=== PATIENT | female | born 1960 | race African-American/Black ===

== ENCOUNTER 2018-03-07 16:50 | Inpatient (IN) | payer OTHER ==
[2018-03-07 19:50] VITALS: BMI 16.6
--- NOTE | 2018-03-08 00:37 | HP ---
CIWA Score - CIWA Score Nausea/Vomitin (vomiting x 2) Muscle Tremors: 3 Anxiety: 3 Agitation: 0-Normal Activity Paroxysmal Sweats: No Perspiration Orientation: 2-Disoriented Date<2 days Tacttile Disturbances: 0-None Auditory Disturbances: 0-None Visual Disturbances: 0-None Headache: 4-Moderately Severe CIWA-Ar Total Score: 15 Admission ROS S - HPI Chief Complaint: Alcohol withdrawal symptoms Allergies/Adverse Reactions: Allergies Allergy/AdvReac Type Severity Reaction Status Date / Time No Known Drug Allergies Allergy Verified 03/07/18 22:27 History of Present Illness: 58 years old female with 25 years history of alcohol dependence is seeking admission to detox. Patient has been in previous detox at [facility] and reports 6 years of sobriety. Patient has medical history of diabetes, Hypertension and Neuropathy. She denies suicide attempt/ ideation at this time. Patient is swollen, red with watery discharge. Patient is to be saent to ER for evaluation. Endorsed to Dr. Gay - Ebola screening Have you traveled outside of the country in the last 21 days: No Have you had contact with anyone from an Ebola affected area: No Have you been sick,other than usual withdrawal symptoms: No Do you have a fever: No Patient History - Patient Medical History Hx Asthma: No Hx Chronic Obstructive Pulmonary Disease (COPD): No Hx Cardiac Disorders: No Hx Hypertension: Yes (BP: 147/96) Hx Seizures: No Hx Diabetes: (Yes, BGM: 249mg/dl (at 22:51)) Hx Gastrointestinal Disorders: No Hx Genitourinary Disorders: No Hx Sexually Transmitted Disorders: No Hx Renal Disease (ESRD): No Hx Depression: No Hx Suicide Attempt: No Hx Schizophrenia: No - Patient Surgical History Past Surgical History: No Hx Neurologic Surgery: No Hx Cataract Extraction: No Hx Cardiac Surgery: No Hx Lung Surgery: No Hx Breast Surgery: No Hx Breast Biopsy: No Hx Abdominal Surgery: No Hx Appendectomy: No Hx Cholecystectomy: No Hx Genitourinary Surgery: No Hx Section: Yes Hx Orthopedic Surgery: No Anesthesia Reaction: No - PPD History Previous Implant?: Yes Documented Results: Negative w/o proof - Reproductive History Patient : No - Smoking Cessation Smoking history: Current every day smoker Have you smoked in the past 12 months: Yes Aproximately how many cigarettes per day: 10 Initiated information on smoking cessation: Yes 'Breaking Loose' booklet given: 03/08/18 - Substances Abused Heroin Route: Inhalation Frequency: Daily Amount used: 4-5 bags Age of first use: 25 Date of Last Use: 03/06/18 Cocaine Route: Smoking Frequency: Daily Amount used: $50 Age of first use: 25 Date of Last Use: 03/07/18 PCP Route: Smoking Frequency: 1-2 times per week Amount used: $30 Age of first use: 23 Date of Last Use: 03/06/18 Alcohol Route: Oral Frequency: Daily Amount used: Beer 1 qt Age of first use: 18 Date of Last Use: 03/06/18 Admission Physical Exam S - Vital Signs Vital Signs: Vital Signs - 24 hr 03/07/18 19:47 Temperature 98.9 F Pulse Rate 86 Respiratory 16 Rate Blood Pressure 147/96 Screened but not Admitted - Documentation of Visit Screened but not Admitted: Yes Left Prior to Completion of Assessment: No Insurance Authorization Denied: No Patient Does Not Meet Criteria for Admission: No Level of Care Recommended at this Time: Other Additional Information/Explanation: Patient has possible pink eye. Her left eye is swollen, red and has a lot of watery discharge. Patient appears very uncomfortable and she reports eye pain. Patient is to be evaluated in ER. Endorsed to DR. Gay. Awaiting ambulance to [facility] ER. [facility] Breath Alcohol Content Breath Alcohol Content: 0 Urine Pregancy Test - Result Urine Test Results: Negative- NO Line Present Urine Drug Screen - Results Drug Screen Negative: No Urine Drug Screen Results: VALENTE-Cocaine
--- NOTE | 2018-03-08 12:25 | PN ---
BONITA Progress Note Note: patient sent to er rewriter called er that the patient is on the way back to [facility] [place]
[2018-03-08] MEDS ORDERED: MAGNESIUM CITRATE 300 ML BOTTLE PO PRN (16:10)
[2018-03-08] MEDS ORDERED: MENTHOL/PHENOL 1 EACH UD MM PRN (16:10)
[2018-03-08] MEDS ORDERED: ACETAMINOPHEN 325 MG TABLET (FP) PO PRN (16:10)
[2018-03-08] MEDS ORDERED: IBUPROFEN 400 MG TABLET (FP) PO PRN (16:10)
[2018-03-08] MEDS ORDERED: P-EPHED 60MG/TRIPROLIDI 2.5MG TABLET PO PRN (16:10)
[2018-03-08] MEDS ORDERED: chlordiazePOXIDE HCL 25 MG CAPSULE PO ONE (16:10)
[2018-03-08] MEDS ORDERED: chlordiazePOXIDE HCL 25 MG CAPSULE PO PRN (16:10)
[2018-03-08] MEDS ORDERED: guaiFENesin/D-METHORPHAN HB 10 ML UNIT-DOSE CUPS PO PRN (16:10)
[2018-03-08] MEDS ORDERED: MAG HYDROX/AL HYDROX/SIMETH 30 ML UNIT-DOSE CUP PO PRN (16:10)
[2018-03-08] MEDS ORDERED: LOPERAMIDE HCL 2 MG CAPSULE PO PRN (16:10)
[2018-03-08] MEDS ORDERED: MAGNESIUM HYDROX 2400MG/30ML ORAL SUSPENSION 30 ML CUP PO PRN (16:10)
--- NOTE | 2018-03-08 16:14 | PN ---
S Progress Note Note: Vital Signs Temperature 98.0 F 03/08/18 11:45 Pulse Rate 70 03/08/18 11:45 Respiratory Rate 18 03/08/18 11:45 Blood Pressure 136/73 03/08/18 11:45 O2 Sat by Pulse Oximetry (%) Patient was
--- NOTE | 2018-03-08 16:18 | PN ---
[facility] CIWA - CIWA Score Nausea/Vomitin-No Nausea/No Vomiting Muscle Tremors: 2 Anxiety: 3 Agitation: 2 Paroxysmal Sweats: 2 Orientation: 0-Oriented Tacttile Disturbances: 2-Mild Itch/Numbness/Burn Auditory Disturbances: 0-None Visual Disturbances: 2-Mild Sensitivity Headache: 0-None Present CIWA-Ar Total Score: 13 S Progress Note (SOAP) Subjective: Patient was seen this morning for isolated (R) conjunctivitis. Patient was medically cleared and d/c from [facility] on ofloxacin, patient to continue ETOH detox. Assessment: 03/08/18 16:17 Plan: Librium detox continue to monitor
[2018-03-08] MEDS ORDERED: CIPROFLOXACIN 0.3% EYE DROPS 5 ML BOTTLE OS SCH (16:30)
[2018-03-08] MEDS: ENALAPRIL MALEATE 10 MG TABLET (FP) PO SCH (17:50)
[2018-03-08] MEDS: chlordiazePOXIDE HCL 25 MG CAPSULE PO SCH ×2 (17:50→22:58)
[2018-03-08] MEDS: metFORMIN HCL 500 MG TABLET (FP) PO SCH (17:50)
[2018-03-08] MEDS: CIPROFLOXACIN 0.3% EYE DROPS 5 ML BOTTLE OS SCH ×2 (18:03→22:59)
[2018-03-08 20:30] LABS: URINE APPEARANCE CLEAR; URINE BILIRUBIN NEGATIVE (<2.0 mg/dL); URINE COLOR YELLOW; URINE GLUCOSE (UA) 3+ (NEGATIVE); URINE KETONE NEGATIVE (NEGATIVE); URINE LEUK ESTERASE NEGATIVE (NEGATIVE); URINE NITRITE NEGATIVE (NEGATIVE); URINE PROTEIN NEGATIVE (NEGATIVE)
[2018-03-08 20:55] LABS: EPI CELLS RARE /HPF (FEW); URINE BACTERIA FEW /hpf (NONE SEEN)
[2018-03-08] MEDS ORDERED: MELATONIN 5 MG TABLETS PO PRN (22:00)
[2018-03-08] MEDS: THIAMINE HCL 100 MG TABLET (FP) PO SCH (22:58)
[2018-03-09] MEDS: chlordiazePOXIDE HCL 25 MG CAPSULE PO SCH ×4 (06:28→22:54)
[2018-03-09] MEDS: metFORMIN HCL 500 MG TABLET (FP) PO SCH ×2 (06:29→18:06)
[2018-03-09] MEDS: CIPROFLOXACIN 0.3% EYE DROPS 5 ML BOTTLE OS SCH ×5 (06:34→22:54)
--- NOTE | 2018-03-09 09:07 | CONSULT ---
[facility] Psychiatric Consult - Data Date of interview: 03/09/18 Admission source: [facility] Identifying data: This is a 58 years old female, [facility], with 25 years history of alcohol dependence is seeking admission to detox. Patient has a history of Cocaine, Alcohol, PCP, Heroin and Nicotine dependence/ abuse history. Substance Abuse History: - Smoking Cessation. Smoking history: Current every day smoker. Have you smoked in the past 12 months: Yes. Aproximately how many cigarettes per day: 10. Initiated information on smoking cessation: Yes. ' Breaking Loose' booklet given: 03/08/18. - Substances Abused. Heroin. Route: Inhalation. Frequency: Daily. Amount used: 4-5 bags. Age of first use : 25. Date of Last Use: 03/06/18. Cocaine. Route: Smoking. Frequency: Daily. Amount used: $50. Age of first use: 25. Date of Last Use: 03/07/18. * * PCP. Route: Smoking. Frequency: 1-2 times per week. Amount used: $30. Age of first use: 23. Date of Last Use: 03/06/18. Alcohol. Route: Oral. Frequency: Daily. Amount used: Beer 1 qt. Age of first use: 18. Date of Last Use: 03/06/18 Medical History: DM-2, HTN, mUSCLE nEUROPATHY, dm-2, Conjunctivitis condition Psychiatric History: Patient reports no psychiatric hospitalization history, reports taking prior to admission: Gabapentine 300mg p[o tid Physical/Sexual Abuse/Trauma History: Denies Additional Comment: Gabapentine 300mg p[o tid Mental Status Exam - Mental Status Exam Alert and Oriented to: Person Cognitive Function: Fair Patient Appearance: Unkempt Mood: Sad Affect: Flat Patient Behavior: Sedated Speech Pattern: Delayed Voice Loudness: Mildly Soft/Quiet Thought Process: Goal Oriented Thought Disorder: Being Controlled Hallucinations: Denies Suicidal Ideation: Denies Homicidal Ideation: Denies Insight/Judgement: Fair Sleep: Difficulty falling asleep Appetite: Weight gain Muscle strength/Tone: Mild Hypotonicity Gait/Station: Deferred Additional Comments: Gabapentine 300mg p[o tid Psychiatric Findings - Problem List ([place] 1, 2,3) (1) Alcohol dependence with uncomplicated withdrawal Current Visit: Yes Status: Acute (2) Cocaine abuse Current Visit: Yes Status: Acute (3) PCP (phencyclidine) abuse Current Visit: Yes Status: Acute (4) Heroin abuse Current Visit: Yes Status: Acute (5) Nicotine abuse Current Visit: Yes Status: Acute (6) Diabetes mellitus type 2 in nonobese Current Visit: Yes Status: Acute (7) HTN (hypertension) Current Visit: Yes Status: Acute (8) Use of cane as ambulatory aid Current Visit: Yes Status: Acute (9) Conjunctivitis Current Visit: No Status: Acute Qualifiers: Conjunctivitis type: acute Acute conjunctivitis type: bacterial Laterality: right Qualified Code(s): H10.31 - Unspecified acute conjunctivitis , right eye (10) Neuropathy Current Visit: Yes Status: Acute - Initial Treatment Plan Initial Treatment Plan: Observation. Gabapentine 300mg po tid
--- NOTE | 2018-03-09 09:54 | PN ---
S CIWA - CIWA Score Nausea/Vomitin-Mild Nausea/No Vomiting Muscle Tremors: 3 Anxiety: 2 Agitation: 2 Paroxysmal Sweats: 1-Minimal Palms Moist Orientation: 1-Uncertain about Date Tacttile Disturbances: 1-Very Mild Itch/Numbness Auditory Disturbances: 0-None Visual Disturbances: 0-None Headache: 1-Very Mild CIWA-Ar Total Score: 12 [facility] Progress Note (SOAP) Subjective: sweat tremor restlessness irritable gi distress muscle aches ambulate from bed to toilet with cane steady gait denies dizziness Objective: 03/09/18 09:54 Vital Signs Temperature 98.2 F 03/09/18 09:17 Pulse Rate 88 03/09/18 09:17 Respiratory Rate 16 03/09/18 09:17 Blood Pressure 123/78 03/09/18 09:17 O2 Sat by Pulse Oximetry (%) Laboratory Last Values POC Glucometer 285 UNITS (80-120) 03/09/18 06:38 Urine Color Yellow 03/08/18 19:30 Urine Appearance Clear 03/08/18 19:30 Urine pH 7.0 (5.0-8.0) 03/08/18 19:30 Ur Specific [place] 1.023 (1.001-1.035) 03/08/18 19:30 Urine Protein Negative (NEGATIVE) 03/08/18 19:30 Urine Glucose (UA) 3+ (NEGATIVE) H 03/08/18 19:30 Urine Ketones Negative (NEGATIVE) 03/08/18 19:30 Urine Blood 1+ (NEGATIVE) H 03/08/18 19:30 Urine Nitrite Negative (NEGATIVE) 03/08/18 19:30 Urine Bilirubin Negative (<2.0 mg/dL) 03/08/18 19:30 Urine Urobilinogen 2.0 mg/dL (0.2-1.0) H 03/08/18 19:30 Ur Leukocyte Esterase Negative (NEGATIVE) 03/08/18 19:30 Urine WBC (Auto) 1 /hpf (3-5) 03/08/18 19:30 Urine RBC (Auto) <1 /hpf (0-3) 03/08/18 19:30 Ur Epithelial Cells Rare /HPF (FEW) 03/08/18 19:30 Urine Bacteria Few /hpf (NONE SEEN) 03/08/18 19:30 urine result noted blood result pending 03/09/18 09:55 Assessment: 03/09/18 09:55 alcohol withdrawal sx conjuctivitis treating with Plan: continue alcohol detox ocuflox discuss hand washing
[2018-03-09 10:00] LABS: HEMOGLOBIN 11.4 GM/dL (10.7-15.3); MCH 26.5 pg (25.7-33.7); MCHC 32.6 g/dl (32.0-36.0); MEAN CELL VOLUME 81.2 fl (80-96); MEAN PLT VOLUME 9.5 fl (7.5-11.1); PLATELET COUNT 241 K/MM3 (134-434); RBC 4.31 M/mm3 (3.60-5.2); RDW 13.7 % (11.6-15.6); WHITE BLOOD COUNT 4.4 K/mm3 (4.0-10.0)
[2018-03-09 10:11] LABS: ANION GAP 8 MMOL/L (8-16); BLOOD UREA NITROGEN 9 mg/dL (7-18); CALCIUM 8.5 mg/dL (8.5-10.1); CHLORIDE 103 mmol/L (98-107); CO2 27 mmol/L (21-32); CREATININE 0.6 mg/dL (0.55-1.02); POTASSIUM 4.6 mmol/L (3.5-5.1); SGOT/AST 7 U/L (15-37); SODIUM 138 mmol/L (136-145)
[2018-03-09 10:13] LABS: ALK PHOS 78 U/L (45-117); BILIRUBIN,TOTAL 0.2 mg/dL (0.2-1.0); SGPT/ALT 11 U/L (12-78)
[2018-03-09 10:27] LABS: GLUCOSE,RANDOM 323 mg/dL (74-106)
[2018-03-09] MEDS: ASPIRIN 81 MG CHEWABLE TABLETS PO SCH (11:01)
[2018-03-09] MEDS: ENALAPRIL MALEATE 10 MG TABLET (FP) PO SCH (11:01)
[2018-03-09] MEDS: PRENATAL VITAMINS W/ FOLIC ACID TABLET (FP) PO SCH (11:01)
--- NOTE | 2018-03-09 11:45 | EKG ---
Test Reason : Blood Pressure : / mmHG Vent. Rate : 070 BPM Atrial Rate : 070 BPM P-R Int : 138 ms QRS Dur : 078 ms QT Int : 378 ms P-R-T Axes : 036 035 067 degrees QTc Int : 408 ms NORMAL SINUS RHYTHM LOW VOLTAGE QRS BORDERLINE ECG NO PREVIOUS ECGS AVAILABLE Confirmed by EMELI JAMES, PERNELL ([id number]) on 03/09/2018 11:45:17 AM Referred By: Confirmed By:PERNELL SAINZ MD
[2018-03-09] MEDS: GABAPENTIN 300 MG CAPSULE (FP) PO SCH ×2 (15:24→22:54)
[2018-03-09] MEDS: THIAMINE HCL 100 MG TABLET (FP) PO SCH (22:55)
[2018-03-10] MEDS: GABAPENTIN 300 MG CAPSULE (FP) PO SCH ×3 (06:01→22:56)
[2018-03-10] MEDS: metFORMIN HCL 500 MG TABLET (FP) PO SCH ×2 (06:02→16:54)
[2018-03-10] MEDS: chlordiazePOXIDE HCL 25 MG CAPSULE PO SCH ×2 (06:02→10:55)
[2018-03-10] MEDS: CIPROFLOXACIN 0.3% EYE DROPS 5 ML BOTTLE OS SCH ×5 (07:37→22:56)
[2018-03-10] MEDS: ENALAPRIL MALEATE 10 MG TABLET (FP) PO SCH (10:55)
[2018-03-10] MEDS: ASPIRIN 81 MG CHEWABLE TABLETS PO SCH (10:55)
[2018-03-10] MEDS: PRENATAL VITAMINS W/ FOLIC ACID TABLET (FP) PO SCH (10:55)
--- NOTE | 2018-03-10 13:18 | PN ---
S CIWA - CIWA Score Nausea/Vomitin-Mild Nausea/No Vomiting Muscle Tremors: 3 Anxiety: 2 Agitation: 2 Paroxysmal Sweats: 1-Minimal Palms Moist Orientation: 1-Uncertain about Date Tacttile Disturbances: 1-Very Mild Itch/Numbness Auditory Disturbances: 0-None Visual Disturbances: 0-None Headache: 1-Very Mild CIWA-Ar Total Score: 12 BHS Progress Note (SOAP) Subjective: sweat tremor restlessness irritable trouble sleep at night Objective: 03/10/18 13:19 Vital Signs Temperature 98.1 F 03/10/18 09:14 Pulse Rate 77 03/10/18 09:14 Respiratory Rate 18 03/10/18 09:14 Blood Pressure 113/66 03/10/18 09:14 O2 Sat by Pulse Oximetry (%) Laboratory Last Values WBC 4.4 K/mm3 (4.0-10.0) 03/09/18 07:00 RBC 4.31 M/mm3 (3.60-5.2) 03/09/18 07:00 Hgb 11.4 GM/dL (10.7-15.3) 03/09/18 07:00 Hct 35.0 % (32.4-45.2) 03/09/18 07:00 MCV 81.2 fl (80-96) 03/09/18 07:00 MCH 26.5 pg (25.7-33.7) 03/09/18 07:00 MCHC 32.6 g/dl (32.0-36.0) 03/09/18 07:00 RDW 13.7 % (11.6-15.6) 03/09/18 07:00 Plt Count 241 K/MM3 (134-434) 03/09/18 07:00 MPV 9.5 fl (7.5-11.1) 03/09/18 07:00 Sodium 138 mmol/L (136-145) 03/09/18 07:00 Potassium 4.6 mmol/L (3.5-5.1) 03/09/18 07:00 Chloride 103 mmol/L (98-107) 03/09/18 07:00 Carbon Dioxide 27 mmol/L (21-32) 03/09/18 07:00 Anion Gap 8 MMOL/L (8-16) 03/09/18 07:00 BUN 9 mg/dL (7-18) 03/09/18 07:00 Creatinine 0.6 mg/dL (0.55-1.02) 03/09/18 07:00 Creat Clearance w eGFR > 60 (>60) 03/09/18 07:00 POC Glucometer 297 UNITS (80-120) 03/10/18 06:01 Random Glucose 323 mg/dL (74-106) H* 03/09/18 07:00 Calcium 8.5 mg/dL (8.5-10.1) 03/09/18 07:00 Total Bilirubin 0.2 mg/dL (0.2-1.0) 03/09/18 07:00 AST 7 U/L (15-37) L 03/09/18 07:00 ALT 11 U/L (12-78) L 03/09/18 07:00 Alkaline Phosphatase 78 U/L (45-117) 03/09/18 07:00 Total Protein 7.0 g/dl (6.4-8.2) 03/09/18 07:00 Albumin 2.0 g/dl (3.4-5.0) L 03/09/18 07:00 Urine Color Yellow 03/08/18 19:30 Urine Appearance Clear 03/08/18 19:30 Urine pH 7.0 (5.0-8.0) 03/08/18 19:30 Ur Specific [place] 1.023 (1.001-1.035) 03/08/18 19:30 Urine Protein Negative (NEGATIVE) 03/08/18 19:30 Urine Glucose (UA) 3+ (NEGATIVE) H 03/08/18 19:30 Urine Ketones Negative (NEGATIVE) 03/08/18 19:30 Urine Blood 1+ (NEGATIVE) H 03/08/18 19:30 Urine Nitrite Negative (NEGATIVE) 03/08/18 19:30 Urine Bilirubin Negative (<2.0 mg/dL) 03/08/18 19:30 Urine Urobilinogen 2.0 mg/dL (0.2-1.0) H 03/08/18 19:30 Ur Leukocyte Esterase Negative (NEGATIVE) 03/08/18 19:30 Urine WBC (Auto) 1 /hpf (3-5) 03/08/18 19:30 Urine RBC (Auto) <1 /hpf (0-3) 03/08/18 19:30 Ur Epithelial Cells Rare /HPF (FEW) 03/08/18 19:30 Urine Bacteria Few /hpf (NONE SEEN) 03/08/18 19:30 RPR Titer Nonreactive (NONREACTIVE) 03/09/18 07:00 lab noted Assessment: 03/10/18 13:21 withdrawal sx Plan: continue detox
[2018-03-10] MEDS: chlordiazePOXIDE 5 MG CAPSULE PO SCH ×2 (16:55→22:56)
--- NOTE | 2018-03-10 17:14 | PN ---
S Progress Note Note: Vital Signs Temperature 96.9 F L 03/10/18 14:06 Pulse Rate 96 H 03/10/18 14:06 Respiratory Rate 16 03/10/18 14:06 Blood Pressure 107/67 03/10/18 14:06 O2 Sat by Pulse Oximetry (%) Patient with BGM at this time of 457. Novolog 6 units now. increase PO fluids continue to monitor
[2018-03-10] MEDS ORDERED: INSULIN (NOVOLOG) ASPART 100 UNITS/ML 10ML VIAL SQ ONE (17:45)
[2018-03-10] MEDS: THIAMINE HCL 100 MG TABLET (FP) PO SCH (22:56)
[2018-03-11] MEDS: metFORMIN HCL 500 MG TABLET (FP) PO SCH ×2 (06:28→17:27)
[2018-03-11] MEDS: GABAPENTIN 300 MG CAPSULE (FP) PO SCH ×3 (06:28→23:05)
[2018-03-11] MEDS: CIPROFLOXACIN 0.3% EYE DROPS 5 ML BOTTLE OS SCH ×5 (06:28→23:06)
[2018-03-11] MEDS: chlordiazePOXIDE 5 MG CAPSULE PO SCH ×2 (06:29→11:05)
[2018-03-11] MEDS: PRENATAL VITAMINS W/ FOLIC ACID TABLET (FP) PO SCH (11:04)
[2018-03-11] MEDS: ENALAPRIL MALEATE 10 MG TABLET (FP) PO SCH (11:04)
[2018-03-11] MEDS: ASPIRIN 81 MG CHEWABLE TABLETS PO SCH (11:04)
--- NOTE | 2018-03-11 11:30 | PN ---
BHS Progress Note (SOAP) Subjective: body aches sweats red eye Objective: 03/11/18 11:28 Vital Signs Temperature 98.4 F 03/11/18 10:11 Pulse Rate 109 H 03/11/18 10:11 Respiratory Rate 16 03/11/18 10:11 Blood Pressure 109/74 03/11/18 10:11 O2 Sat by Pulse Oximetry (%) aaox3 ambulating no acute distress Assessment: 03/11/18 11:29 withdrawal sx Plan: continue detox increase fluids left eye conjunctivitis continue with eye ABX as ordered d/c in am
[2018-03-11] MEDS: chlordiazePOXIDE HCL 10 MG CAPSULE PO SCH ×2 (17:27→23:05)
[2018-03-11] MEDS: THIAMINE HCL 100 MG TABLET (FP) PO SCH (23:05)
[2018-03-12] MEDS: CIPROFLOXACIN 0.3% EYE DROPS 5 ML BOTTLE OS SCH ×3 (05:57→13:47)
[2018-03-12] MEDS: chlordiazePOXIDE HCL 10 MG CAPSULE PO SCH ×2 (05:58→11:02)
[2018-03-12] MEDS: metFORMIN HCL 500 MG TABLET (FP) PO SCH (06:00)
[2018-03-12] MEDS: GABAPENTIN 300 MG CAPSULE (FP) PO SCH ×2 (06:00→13:46)
[2018-03-12] MEDS: ASPIRIN 81 MG CHEWABLE TABLETS PO SCH (11:01)
[2018-03-12] MEDS: ENALAPRIL MALEATE 10 MG TABLET (FP) PO SCH (11:01)
[2018-03-12] MEDS: PRENATAL VITAMINS W/ FOLIC ACID TABLET (FP) PO SCH (11:02)
[2018-03-12 13:52] VITALS: BP 106/66; PULSE 93; TEMP 97
--- NOTE | 2018-03-12 16:39 | DS ---
[facility] Detox Discharge Summary Admission Date: 03/07/18 Discharge Date: 03/12/18 - History Present History: Alcohol Dependence, Cocaine Dependence Pertinent Past History: 58 years old female with 25 years history of alcohol dependence was admitted and successfully completed alcohol detox. Patient has been in previous detox at [facility] and reports 6 years of sobriety. Patient has medical history of diabetes, Hypertension and Neuropathy. Pt was seen at [facility] for red eye and diagnosed with conjuctivitis- given eye drops - Physical Exam Results Vital Signs: Vital Signs Temperature 97.0 F L 03/12/18 13:51 Pulse Rate 93 H 03/12/18 13:51 Respiratory Rate 16 03/12/18 13:51 Blood Pressure 106/66 03/12/18 13:51 O2 Sat by Pulse Oximetry (%) - Treatment Hospital Course: Detox Protocol Followed, Detoxed Safely, Responded well, Discharged Condition Good, Rehab Referral Accepted Patient has Accepted a Rehab Referral to: [facility] rehab - Medication Discharge Medications: Ambulatory Orders Enalapril Maleate [Vasotec -] 10 mg PO DAILY 03/07/18 Gabapentin 300 mg PO TID 03/07/18 Aspirin [ASA -] 81 mg PO DAILY 03/08/18 Ofloxacin 0.3% Ophth Soln [Ocuflox -] 1 drop AD Q4H #1 bottle 03/08/18 metFORMIN HCL [Metformin HCl] 500 mg PO BID 03/08/18 Gabapentin [Neurontin -] 300 mg PO TID #90 capsule 03/09/18 - AMA Did Patient Leave Against Medical Advice: No
== END 2018-03-12 15:06 | disposition other institution (70) | DRG 773 ==
LOC: YASAS 16:50 → Y6N 23:53
PROC: HZ2ZZZZ Detoxification Services for Substance Abuse Treatment (ICD-10-PCS; principal; 2018-03-07)
DX: F10.230 Alcohol dependence with withdrawal, uncomplicated (principal); F14.20 Cocaine dependence, uncomplicated; F11.10 Opioid abuse, uncomplicated; F16.10 Hallucinogen abuse, uncomplicated; Z72.0 Tobacco use; I10 Essential (primary) hypertension; E11.9 Type 2 diabetes mellitus without complications; Z79.84 Long term (current) use of oral hypoglycemic drugs; H10.31 Unspecified acute conjunctivitis, right eye; R26.89 Other abnormalities of gait and mobility; Z99.89 Dependence on other enabling machines and devices; Z59.0 Homelessness
CPT/HCPCS: 36415; 80053; 81003; 81015; 82962; 85027; 86593; 93005; 93010

== ENCOUNTER 2018-03-08 01:25 | Emergency (ER) | payer OTHER ==
[2018-03-08 01:40] VITALS: BMI 21.2
--- NOTE | 2018-03-08 01:41 | PDOC ---
History of Present Illness - General Stated Complaint: PINK EYE Time Seen by Provider: 03/08/18 01:40 History Source: Patient Exam Limitations: No Limitations - History of Present Illness Initial Comments: 03/08/18 02:02 Ms. Nails is a 58 yo F with a hx of HTN and DM who presents to the emergency department from [facility] for possible left eye infection and bilateral foot/ ankle pain and swelling. She states the left eye has been painful and itchy for 2 days. She states she is homeless and frequents the shelters where others are sick. She denies the following: acute worsening of pain in darkness or bright lights, pressure behind the eye, acute loss of vision, mechanical trauma, and foreign body entrapment. Concurrently, she has had bilateral foot and leg swelling for the past 2 days. This happens to her in the past before, however this is the longest it has occurred. The pain is located throughout the feet and ankle and worsens with walking and movement. She denies the following: tachypnea, fevers, chills, SOB, chest pain, N/V/D/constipation, melena, and dizziness. 03/08/18 02:48 Past History - Past Medical History Allergies/Adverse Reactions: Allergies Allergy/AdvReac Type Severity Reaction Status Date / Time No Known Drug Allergies Allergy Verified 03/08/18 11:28 Home Medications: Ambulatory Orders Enalapril Maleate [Vasotec -] 10 mg PO DAILY 03/07/18 Gabapentin 300 mg PO TID 03/07/18 Aspirin [ASA -] 81 mg PO DAILY 03/08/18 Ofloxacin 0.3% Ophth Soln [Ocuflox -] 1 drop AD Q4H #1 bottle 03/08/18 metFORMIN HCL [Metformin HCl] 500 mg PO BID 03/08/18 Asthma: No Cardiac Disorders: No COPD: No Diabetes: (Yes, BGM: 249mg/dl (at 22:51)) GI Disorders: No Disorders: No HTN: Yes (BP: 147/96) Kidney Stones: No Seizures: No - Surgical History Abdominal Surgery: No Appendectomy: No Cardiac Surgery: No Cholecystectomy: No Lung Surgery: No Neurologic Surgery: No Orthopedic Surgery: No - Suicide/Smoking/Psychosocial Hx Smoking History: Current every day smoker Have you smoked in the past 12 months: Yes Number of Cigarettes Smoked Daily: 10 Information on smoking cessation initiated: No Hx Alcohol Use: No Drug/Substance Use Hx: Yes Hx Substance Use Treatment: Yes Review of Systems - Review of Systems Able to Perform ROS?: Yes Constitutional: No: Chills, Diaphoresis, Fever HEENTM: Yes: Eye Pain (left), Tearing (left eye). No: Ear Pain, Nose Pain, Throat Pain, Mouth Pain Respiratory: No: Cough, Shortness of Breath Cardiac (ROS): Yes: Edema (bilateral ankles). No: Chest Pain, Lightheadedness, Palpitations, Syncope, Chest Tightness ABD/GI: No: Abdominal Distended, Nausea, Rectal Bleeding, Vomiting, Abdominal cramping, Tarry Stools : No: Burning, Dysuria, Hematuria Musculoskeletal: No: Back Pain Integumentary: No: Rash, Sweating Neurological: No: Headache, Tingling, Tremors, Weakness, Unsteady Gait Psychiatric: No: Stressors Endocrine: No: Increased Hunger Hematologic/Lymphatic: No: Anemia *Physical Exam - Vital Signs Last Vital Signs Temp Pulse Resp BP Pulse Ox 98.6 F 72 18 112/69 96 03/08/18 01:36 03/08/18 01:36 03/08/18 01:36 03/08/18 01:36 03/08/18 01:36 - Physical Exam General Appearance: Yes: Nourished, Appropriately Dressed HEENT: positive: EOMI, GUILLE, Normal Voice, Symmetrical Neck: positive: Trachea midline. negative: Lymphadenopathy (R), Lymphadenopathy (L) Respiratory/Chest: positive: Lungs Clear, Normal Breath Sounds. negative: Chest Tender, Respiratory Distress, Accessory Muscle Use Cardiovascular: positive: Regular Rhythm, Regular Rate, S1, S2. negative: Systolic Murmur Vascular Pulses: Dorsalis-Pedis (R): 3+, Doralis-Pedis (L): 3+ Gastrointestinal/Abdominal: positive: Normal Bowel Sounds. negative: Tender Lymphatic: negative: Adenopathy Musculoskeletal: positive: Normal Inspection. negative: CVA Tenderness Extremity: positive: Normal Capillary Refill, Normal Inspection, Normal Range of Motion, Pedal Edema (bilateral), Swelling (bilateral ankle swelling and feet swelling. ). 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 r/o glaucoma. ddx includes viral vs bacterial conjunctivitis, corneal abrasion, iritis, scleritis Initial vitals: Initial Vital Signs Temp Pulse Resp BP Pulse Ox 98.6 F 72 18 112/69 96 03/08/18 01:36 03/08/18 01:36 03/08/18 01:36 03/08/18 01:36 03/08/18 01:36 Work up: ordered foot and ankle xrays bilaterally for pain. given 975 mg of tylenol for pain control. fluorescein was applied to assess for corneal abrasions. No pooling of the dye was noted on exam. Unlikely to be glaucoma - globes not rock solid, pupils reactive, and not sensitive to darkness. Vision test applied: 20/40 left eye and 20/30 on the right eye. Applied erythromycin ointment onto the left eye. Per the patient, prior to the administration she was pain free. Pt was reassessed at 6:50 am and eye pain free. Continues to complain of left and right foot/ankle pain. Was given 1 gram of tylenol for pain control. Awaiting xrays of the legs/ankles. Disposition is if negative to give abx eye drops needing PMD follow up. [facility] will not accept back per the MUSEUM HOST/HOSTESS on the phone since she has conjunctivitis. *DC/Admit/Observation/Transfer Diagnosis at time of Disposition: Conjunctivitis - Discharge Dispostion Disposition: HOME Condition at time of disposition: Stable - Prescriptions Prescriptions: Ofloxacin 0.3% Ophth Soln [Ocuflox -] 1 drop AD Q4H #1 bottle - Referrals Referrals: ON STAFF,NOT [Primary Care Provider] - - Patient Instructions Printed Discharge Instructions: DI for Conjunctivitis Additional Instructions: You were seen in the ED for complaints of R eye redness. In the ED you were evaluated and found to have R eye conjunctivitis There does not appear to be an acute need for immediate hospitalization. You are advised to follow up with your primary care physician within 1 week. You were given a prescription to antibiotic ofloxacin eyedrops, 2 drops every 4 hours until symptoms resolve. Return to the ED immediately if you experience worsening R eye redness, eye pain or discharge, changes in vision, fever or headache. - Post Discharge Activity
--- NOTE | 2018-03-08 02:07 | PDOC ---
Attending Attestation - Resident Resident Name: JuveAlbert - ED Attending Attestation I have performed the following: I have examined & evaluated the patient, The case was reviewed & discussed with the resident, I agree w/resident's findings & plan, Exceptions are as noted - HPI HPI: 03/08/18 02:13 Ms Nails is a 58 yo F undomiciled, h/o polysubstance abuse h/o DM She presents to the ER via EMS from [facility] due to left eye erythema and tearing which has been present for the past 4 days No fevers or chills No eye trauma no prior episode like this No pain with eye movement No vision changes - Physicial Exam PE: 03/08/18 02:14 On examination: Left eye erythematous, Conjunctival injection noted Pupils round and reactive to light - 4mm to 2 mm No pain with light to the right eye EOMI (+) mucous noted in eye visual acuity (per resident) - 20/40 (left), 20/30 (right) Pt is somnolent overall Tonopen not available, but no globe firmness palpable 03/09/18 01:42 - Medical Decision Making 03/08/18 02:31 DD: Corneal Abrasion, Conjunctivitis, Uvitis, Iritis, Flourescine stain - no uptake No pain with light exposure - doubt Iritis Pt will need to follow up with ophthalmology within 2 days Will discharge on home Pt also reported bilateral foot pain Will do xrays (They are still pending) Pt signed out to the day time team
[2018-03-08] MEDS ORDERED: ERYTHROMYCIN 0.5% OPHTHALMIC OINTMENT 3.5 GM TUBE OU ONE (02:16)
[2018-03-08] MEDS ORDERED: FLUORESCEIN NA 1 EA STRIP OU ONE (02:16)
[2018-03-08] MEDS ORDERED: TETRACAINE 0.5% OPHTH SOLN 2 ML BOTTLE OU ONE (02:16)
[2018-03-08] MEDS ORDERED: TETRACAINE 0.5% OPHTH SOLN 2 ML BOTTLE ONE (02:18)
[2018-03-08] MEDS ORDERED: ERYTHROMYCIN 0.5% OPHTHALMIC OINTMENT 3.5 GM TUBE ONE (02:18)
[2018-03-08] MEDS ORDERED: FLUORESCEIN NA 1 EA STRIP ONE (02:19)
[2018-03-08] MEDS ORDERED: ACETAMINOPHEN 500 MG TABLET (FP) PO ONE (05:09)
[2018-03-08] MEDS ORDERED: ACETAMINOPHEN 325 MG TABLET (FP) ONE (05:38)
[2018-03-08 08:02] VITALS: BP 124/78; PULSE 77; TEMP 98.3
--- NOTE | 2018-03-08 08:19 | PDOC ---
*Physical Exam - Vital Signs Last Vital Signs Temp Pulse Resp BP Pulse Ox 98.3 F 77 18 124/78 100 03/08/18 08:01 03/08/18 08:01 03/08/18 08:01 03/08/18 08:01 03/08/18 08:01 <DonynaidaTimur - Last Filed: 03/08/18 09:20> - Vital Signs Last Vital Signs Temp Pulse Resp BP Pulse Ox 98.3 F 77 18 124/78 100 03/08/18 08:01 03/08/18 08:01 03/08/18 08:01 03/08/18 08:01 03/08/18 08:01 - Physical Exam Comments: 03/08/18 08:11 GENERAL: lethargic but arousable and alert HEAD: No signs of trauma, normocephalic, atraumatic EYES: EOMI, sclera anicteric, significant L eye conjunctival injection ENT: oropharynx clear without exudates. Moist mucosa NECK: Normal ROM, supple LUNGS: No distress, speaks full sentences, clear to auscultation bilaterally HEART: Regular rate and rhythm, normal S1 and S2, no murmurs, rubs or gallops, peripheral pulses normal and equal bilaterally. ABDOMEN: Soft, nontender, normoactive bowel sounds. No guarding, no rebound. No masses EXTREMITIES : Normal inspection, + mild bilateral ankle swelling NEUROLOGICAL: Normal speech, no focal sensorimotor deficits SKIN: Warm, Dry, normal turgor, no rashes or lesions noted <oJann Gagnon - Last Filed: 03/08/18 09:25> ED Treatment Course - Medications Given in the ED: ED Medications Discontinued Medications Generic Name Dose Route Start Last Admin Trade Name Rick PRN Reason Stop Dose Admin Acetaminophen 1,000 mg 03/08/18 05:09 03/08/18 05:49 Tylenol - PO 03/08/18 05:10 1,000 mg ONCE ONE Administration Erythromycin 1 applic 03/08/18 02:16 03/08/18 02:19 Erythromycin 0.5% Eye Ointment OU 03/08/18 02:17 1 applic ONCE ONE Administration Fluorescein Sodium 1 ea 03/08/18 02:16 03/08/18 02:20 Fluorets - OU 03/08/18 02:17 1 ea ONCE ONE Administration Tetracaine HCl 1 drop 03/08/18 02:16 03/08/18 02:20 Pontocaine OU 03/08/18 02:17 1 drop ONCE ONE Administration <Timur Calero - Last Filed: 03/08/18 09:20> - Medications Given in the ED: ED Medications Discontinued Medications Generic Name Dose Route Start Last Admin Trade Name Rick PRN Reason Stop Dose Admin Acetaminophen 1,000 mg 03/08/18 05:09 03/08/18 05:49 Tylenol - PO 03/08/18 05:10 1,000 mg ONCE ONE Administration Erythromycin 1 applic 03/08/18 02:16 03/08/18 02:19 Erythromycin 0.5% Eye Ointment OU 03/08/18 02:17 1 applic ONCE ONE Administration Fluorescein Sodium 1 ea 03/08/18 02:16 03/08/18 02:20 Fluorets - OU 03/08/18 02:17 1 ea ONCE ONE Administration Tetracaine HCl 1 drop 03/08/18 02:16 03/08/18 02:20 Pontocaine OU 03/08/18 02:17 1 drop ONCE ONE Administration <Joann Gagnon - Last Filed: 03/08/18 09:25> Medical Decision Making - Medical Decision Making 03/08/18 09:22 discussed with mike at [facility]. Pt can return and be evaluated for detox admission, can be placed on appropriate isolated for conjuncitivitis. Pt agrees and prefers this plan, will d/c back to [facility] with security transport, rx for eye drop abx. <Timur Calero - Last Filed: 03/08/18 09:20> - Medical Decision Making 03/08/18 08:11 Pt signed out by Dr. An. Pt assessed. stable. 03/08/18 08:19 Pt taken to XR. 03/08/18 08:40 XR unremarkable Patient stable for discharge. Given follow up instructions and strict return precautions. Patient expressed understanding and agreed to plan. <Joann Gagnon - Last Filed: 03/08/18 09:25> *DC/Admit/Observation/Transfer <Timur Calero - Last Filed: 03/08/18 09:20> - Discharge Dispostion Decision to Admit order: No <Joann Gagnon - Last Filed: 03/08/18 09:25> Diagnosis at time of Disposition: Conjunctivitis - Discharge Dispostion Disposition: HOME Condition at time of disposition: Stable - Prescriptions Prescriptions: Ofloxacin 0.3% Ophth Soln [Ocuflox -] 1 drop AD Q4H #1 bottle - Referrals Referrals: ON STAFF,NOT [Primary Care Provider] - - Patient Instructions Printed Discharge Instructions: DI for Conjunctivitis Additional Instructions: You were seen in the ED for complaints of R eye redness. In the ED you were evaluated and found to have R eye conjunctivitis There does not appear to be an acute need for immediate hospitalization. You are advised to follow up with your primary care physician within 1 week. You were given a prescription to antibiotic ofloxacin eyedrops, 2 drops every 4 hours until symptoms resolve. Return to the ED immediately if you experience worsening R eye redness, eye pain or discharge, changes in vision, fever or headache. - Post Discharge Activity
[2018-03-12] MEDS ORDERED: ENALAPRIL MALEATE 10 MG TABLET (FP) PO SCH (17:45)
[2018-03-12] MEDS ORDERED: OFLOXACIN 0.3% OPHTHALMIC SOLUTION 5 ML BOTTLE OU SCH (18:00)
[2018-03-13] MEDS ORDERED: ASPIRIN COATED 81 MG TABLET.EC PO SCH (10:00)
== END 2018-03-08 10:13 | disposition home or self-care (01) ==
LOC: JER 01:25
DX: H10.32 Unspecified acute conjunctivitis, left eye (principal); R60.0 Localized edema; M79.672 Pain in left foot; I10 Essential (primary) hypertension; E11.9 Type 2 diabetes mellitus without complications; Z79.84 Long term (current) use of oral hypoglycemic drugs; Z79.82 Long term (current) use of aspirin; Z59.0 Homelessness
CPT/HCPCS: 73610-TC-LT-FY; 73610-TC-RT-FY; 73630-TC-LT; 73630-TC-RT-FY; 99282-25

== ENCOUNTER 2018-03-12 15:21 | Inpatient (IN) | payer OTHER ==
[2018-03-12] MEDS ORDERED: ACETAMINOPHEN 325 MG TABLET (FP) PO PRN (17:27)
[2018-03-12] MEDS ORDERED: LOPERAMIDE HCL 2 MG CAPSULE PO PRN (17:27)
[2018-03-12] MEDS ORDERED: MAGNESIUM HYDROX 2400MG/30ML ORAL SUSPENSION 30 ML CUP PO PRN (17:27)
[2018-03-12] MEDS ORDERED: MAGNESIUM CITRATE 300 ML BOTTLE PO PRN (17:27)
[2018-03-12] MEDS ORDERED: MENTHOL/PHENOL 1 EACH UD MM PRN (17:27)
[2018-03-12] MEDS ORDERED: guaiFENesin/D-METHORPHAN HB 10 ML UNIT-DOSE CUPS PO PRN (17:27)
[2018-03-12] MEDS ORDERED: P-EPHED 60MG/TRIPROLIDI 2.5MG TABLET PO PRN (17:27)
--- NOTE | 2018-03-12 17:27 | HP ---
[facility] Rehab Assess/Revision - Admission History Admitted to Rehab from: [facility] Date of Admission to Rehab: 03/12/18 - Vital signs Vital Signs: Vital Signs Period Temp Pulse Resp BP Sys/Izquierdo Pulse Ox Last 24 Hr 97.9 F 102 18 110/73 - Findings Detox History & Physical reviewed: Yes Concur with findings: Yes Inpatient Rehab Admission - Initial Determination Free of communicable disease: Yes Not in need of hospitalization: Yes - Rehab Admission Criteria Previous failed treatment: Yes Poor recovery environment: Yes Comorbidities: Yes Lacks judgement: Yes Patient is meeting Inpatient Rehab admission criteria:: Yes
[2018-03-12] MEDS: GABAPENTIN 300 MG CAPSULE (FP) PO SCH (22:00)
[2018-03-12] MEDS: THIAMINE HCL 100 MG TABLET (FP) PO SCH (22:00)
[2018-03-12] MEDS ORDERED: MELATONIN 5 MG TABLETS PO PRN (22:00)
[2018-03-13] MEDS: CIPROFLOXACIN HCL 0.3% OPHTH 2.5ML BOTTLE OU SCH ×5 (06:37→21:22)
[2018-03-13] MEDS: metFORMIN HCL 500 MG TABLET (FP) PO SCH ×2 (06:39→17:01)
[2018-03-13] MEDS: GABAPENTIN 300 MG CAPSULE (FP) PO SCH ×3 (06:39→21:24)
[2018-03-13] MEDS: PRENATAL VITAMINS W/ FOLIC ACID TABLET (FP) PO SCH (10:58)
[2018-03-13] MEDS: ENALAPRIL MALEATE 10 MG TABLET (FP) PO SCH (10:58)
[2018-03-13] MEDS: IBUPROFEN 400 MG TABLET (FP) PO PRN (10:59)
[2018-03-13] MEDS ORDERED: PT OWN MED DRAWER 7, Y5N ONE ×2 (17:04→22:36)
[2018-03-13] MEDS: THIAMINE HCL 100 MG TABLET (FP) PO SCH (21:24)
[2018-03-13] MEDS: MAG HYDROX/AL HYDROX/SIMETH 30 ML UNIT-DOSE CUP PO PRN (21:29)
[2018-03-14] MEDS: metFORMIN HCL 500 MG TABLET (FP) PO SCH ×2 (06:24→16:55)
[2018-03-14] MEDS: CIPROFLOXACIN HCL 0.3% OPHTH 2.5ML BOTTLE OU SCH ×5 (06:24→21:34)
[2018-03-14] MEDS: GABAPENTIN 300 MG CAPSULE (FP) PO SCH ×3 (06:24→21:33)
[2018-03-14] MEDS: PRENATAL VITAMINS W/ FOLIC ACID TABLET (FP) PO SCH (09:56)
[2018-03-14] MEDS: ENALAPRIL MALEATE 10 MG TABLET (FP) PO SCH (09:56)
[2018-03-14] MEDS: IBUPROFEN 400 MG TABLET (FP) PO PRN ×2 (09:58→16:57)
--- NOTE | 2018-03-14 10:42 | HP ---
Psychiatrist Admission - Data Date of interview: 03/14/18 Admission source: [address] [place] [address] detox Identifying data: This is the first admission to [address] [place] [address] single mother of 36 yo son,undomiciled,no financial support. Medical History: DM,HTN. Psychiatric History: Patient reports no psychiatric history,but states that she takes Neurontin for mood stabilization prescribed by her PCP which she continues while being in detox on [address] [place] [address] last week. Physical/Sexual Abuse/Trauma History: Patient denies. Vital Signs: Vital Signs - 24 hr 03/13/18 03/14/18 03/14/18 12:00 00:30 03:30 Temperature 97.7 F Pulse Rate 98 H Respiratory 20 18 18 Rate Blood Pressure 109/74 03/14/18 06:45 Temperature 98.1 F Pulse Rate 93 H Respiratory 18 Rate Blood Pressure 108/73 Allergies/Adverse Reactions: Allergies Allergy/AdvReac Type Severity Reaction Status Date / Time No Known Drug Allergies Allergy Verified 03/08/18 11:28 Date of last physical exam: 03/08/18 Concur with the findings of this exam: Yes - Substance Abuse/Tx History Hx Alcohol Use: Yes (drinking since 18 yo,beer 1 qt) Hx Substance Use: Yes (heroin since 25 yo,5 bags daily,cocaine since 25,PCP since 23 yo,$30 daily) Substance Use Type: Alcohol, Cocaine, Heroin Hx Substance Use Treatment: Yes (no significant abstinence time) Mental Status Exam - Mental Status Exam Alert and Oriented to: Time, Place, Person Cognitive Function: Grossly Intact Patient Appearance: Unkempt Mood: Anxious Affect: Labile Patient Behavior: Cooperative Speech Pattern: Clear Voice Loudness: Normal Thought Process: Goal Oriented Thought Disorder: Not Present Hallucinations: Denies Suicidal Ideation: Denies Homicidal Ideation: Denies Insight/Judgement: Fair Sleep: Fair Appetite: Good Muscle strength/Tone: Normal Gait/Station: Normal Psychiatric Findings - Problem List ([place] 1, 2,3) (1) Diabetes mellitus type 2 in nonobese Current Visit: Yes Status: Chronic (2) HTN (hypertension) Current Visit: Yes Status: Chronic (3) Neuropathy Current Visit: Yes Status: Chronic (4) Alcohol dependence Current Visit: Yes Status: Chronic (5) PCP (phencyclidine) abuse Current Visit: Yes Status: Chronic (6) Use of cane as ambulatory aid Current Visit: Yes Status: Chronic (7) Opioid dependence Current Visit: Yes Status: Chronic (8) Substance induced mood disorder Current Visit: Yes Status: Chronic (9) Conjunctivitis Current Visit: Yes Status: Acute Qualifiers: Conjunctivitis type: acute Acute conjunctivitis type: bacterial Laterality: right Qualified Code(s): H10.31 - Unspecified acute conjunctivitis , right eye - Initial Treatment Plan Initial Treatment Plan: Neurontin 300 mg po tid.will monitor progress.
--- NOTE | 2018-03-14 13:44 | PN ---
[facility] Progress Note Note: Vital Signs Temperature 97.8 F 03/14/18 09:30 Pulse Rate 96 H 03/14/18 09:30 Respiratory Rate 18 03/14/18 09:30 Blood Pressure 112/77 03/14/18 09:30 O2 Sat by Pulse Oximetry (%) Laboratory Last Values POC Glucometer 208 UNITS (80-120) 03/14/18 06:23 Patient c/o of eye tearing discomfort from the left eye. Denies changes in vision. Patient currently on Cipro .3 for the left eye q4h. Patient was evaluated at the ED at [facility] on 03/08/18. patient Aox3, no distress + left eye redness no adventitious breath sounds full ROM conjunctivitis continue cipro continue to monitor if worsening symptoms are present, patient will be sent to [facility]
[2018-03-14] MEDS: THIAMINE HCL 100 MG TABLET (FP) PO SCH (21:33)
[2018-03-15] MEDS ORDERED: PT OWN MED DRAWER 7, Y5N ONE ×2 (03:24→09:29)
[2018-03-15] MEDS: CIPROFLOXACIN HCL 0.3% OPHTH 2.5ML BOTTLE OU SCH ×5 (06:23→21:48)
[2018-03-15] MEDS: GABAPENTIN 300 MG CAPSULE (FP) PO SCH ×3 (06:24→21:49)
[2018-03-15] MEDS: metFORMIN HCL 500 MG TABLET (FP) PO SCH ×2 (06:24→17:07)
[2018-03-15] MEDS: ENALAPRIL MALEATE 10 MG TABLET (FP) PO SCH (09:30)
[2018-03-15] MEDS: PRENATAL VITAMINS W/ FOLIC ACID TABLET (FP) PO SCH (09:31)
[2018-03-15] MEDS: IBUPROFEN 400 MG TABLET (FP) PO PRN ×2 (09:31→17:09)
[2018-03-15] MEDS: MAG HYDROX/AL HYDROX/SIMETH 30 ML UNIT-DOSE CUP PO PRN (17:09)
[2018-03-15] MEDS: THIAMINE HCL 100 MG TABLET (FP) PO SCH (21:49)
[2018-03-16] MEDS ORDERED: PT OWN MED DRAWER 7, Y5N ONE ×3 (03:16→15:50)
[2018-03-16] MEDS: CIPROFLOXACIN HCL 0.3% OPHTH 2.5ML BOTTLE OU SCH ×5 (06:50→21:09)
[2018-03-16] MEDS: metFORMIN HCL 500 MG TABLET (FP) PO SCH ×2 (06:50→17:19)
[2018-03-16] MEDS: GABAPENTIN 300 MG CAPSULE (FP) PO SCH ×3 (06:51→21:09)
[2018-03-16] MEDS: IBUPROFEN 400 MG TABLET (FP) PO PRN ×2 (09:00→17:21)
[2018-03-16] MEDS: PRENATAL VITAMINS W/ FOLIC ACID TABLET (FP) PO SCH (09:45)
[2018-03-16] MEDS: ENALAPRIL MALEATE 10 MG TABLET (FP) PO SCH (09:45)
[2018-03-16] MEDS: ASPIRIN 81 MG CHEWABLE TABLETS PO SCH (09:45)
[2018-03-16] MEDS: THIAMINE HCL 100 MG TABLET (FP) PO SCH (21:10)
[2018-03-17] MEDS ORDERED: PT OWN MED DRAWER 7, Y5N ONE ×4 (03:11→22:04)
[2018-03-17] MEDS: metFORMIN HCL 500 MG TABLET (FP) PO SCH ×2 (06:45→17:05)
[2018-03-17] MEDS: GABAPENTIN 300 MG CAPSULE (FP) PO SCH ×3 (06:45→21:11)
[2018-03-17] MEDS: CIPROFLOXACIN HCL 0.3% OPHTH 2.5ML BOTTLE OU SCH ×5 (06:45→21:11)
[2018-03-17] MEDS: ASPIRIN 81 MG CHEWABLE TABLETS PO SCH (09:44)
[2018-03-17] MEDS: IBUPROFEN 400 MG TABLET (FP) PO PRN ×2 (09:45→17:06)
[2018-03-17] MEDS: ENALAPRIL MALEATE 10 MG TABLET (FP) PO SCH (09:45)
[2018-03-17] MEDS: PRENATAL VITAMINS W/ FOLIC ACID TABLET (FP) PO SCH (09:45)
[2018-03-17] MEDS: THIAMINE HCL 100 MG TABLET (FP) PO SCH (21:11)
[2018-03-18] MEDS: CIPROFLOXACIN HCL 0.3% OPHTH 2.5ML BOTTLE OU SCH ×5 (06:21→22:19)
[2018-03-18] MEDS: GABAPENTIN 300 MG CAPSULE (FP) PO SCH ×3 (06:22→22:19)
[2018-03-18] MEDS: IBUPROFEN 400 MG TABLET (FP) PO PRN (06:23)
[2018-03-18] MEDS: metFORMIN HCL 500 MG TABLET (FP) PO SCH ×2 (07:09→16:56)
[2018-03-18] MEDS ORDERED: PT OWN MED DRAWER 7, Y5N ONE (08:15)
[2018-03-18] MEDS: ASPIRIN 81 MG CHEWABLE TABLETS PO SCH (09:43)
[2018-03-18] MEDS: PRENATAL VITAMINS W/ FOLIC ACID TABLET (FP) PO SCH (09:44)
[2018-03-18] MEDS: ENALAPRIL MALEATE 10 MG TABLET (FP) PO SCH (09:45)
[2018-03-18] MEDS: THIAMINE HCL 100 MG TABLET (FP) PO SCH (22:19)
[2018-03-19] MEDS: IBUPROFEN 400 MG TABLET (FP) PO PRN ×3 (02:44→16:45)
[2018-03-19] MEDS ORDERED: PT OWN MED DRAWER 7, Y5N ONE ×5 (03:16→21:29)
[2018-03-19] MEDS: GABAPENTIN 300 MG CAPSULE (FP) PO SCH ×3 (07:10→21:28)
[2018-03-19] MEDS: metFORMIN HCL 500 MG TABLET (FP) PO SCH ×2 (07:10→16:46)
[2018-03-19] MEDS: CIPROFLOXACIN HCL 0.3% OPHTH 2.5ML BOTTLE OU SCH ×5 (07:11→21:30)
[2018-03-19] MEDS: ASPIRIN 81 MG CHEWABLE TABLETS PO SCH (09:35)
[2018-03-19] MEDS: PRENATAL VITAMINS W/ FOLIC ACID TABLET (FP) PO SCH (09:37)
[2018-03-19] MEDS: ENALAPRIL MALEATE 10 MG TABLET (FP) PO SCH (09:37)
[2018-03-19] MEDS: THIAMINE HCL 100 MG TABLET (FP) PO SCH (21:28)
[2018-03-20] MEDS ORDERED: PT OWN MED DRAWER 7, Y5N ONE ×2 (03:17→08:17)
[2018-03-20] MEDS: CIPROFLOXACIN HCL 0.3% OPHTH 2.5ML BOTTLE OU SCH ×4 (06:54→21:04)
[2018-03-20] MEDS: metFORMIN HCL 500 MG TABLET (FP) PO SCH ×2 (06:56→16:49)
[2018-03-20] MEDS: IBUPROFEN 400 MG TABLET (FP) PO PRN ×2 (06:56→21:04)
[2018-03-20] MEDS: GABAPENTIN 300 MG CAPSULE (FP) PO SCH ×3 (06:56→21:03)
[2018-03-20] MEDS: ASPIRIN 81 MG CHEWABLE TABLETS PO SCH (10:00)
[2018-03-20] MEDS: PRENATAL VITAMINS W/ FOLIC ACID TABLET (FP) PO SCH (10:01)
[2018-03-20] MEDS: ENALAPRIL MALEATE 10 MG TABLET (FP) PO SCH (10:02)
[2018-03-20] MEDS: THIAMINE HCL 100 MG TABLET (FP) PO SCH (21:03)
[2018-03-21] MEDS ORDERED: PT OWN MED DRAWER 7, Y5N ONE ×4 (03:08→18:43)
[2018-03-21] MEDS: CIPROFLOXACIN HCL 0.3% OPHTH 2.5ML BOTTLE OU SCH ×5 (06:35→21:10)
[2018-03-21] MEDS: metFORMIN HCL 500 MG TABLET (FP) PO SCH ×2 (06:35→16:58)
[2018-03-21] MEDS: IBUPROFEN 400 MG TABLET (FP) PO PRN ×3 (06:35→21:09)
[2018-03-21] MEDS: GABAPENTIN 300 MG CAPSULE (FP) PO SCH ×3 (06:35→21:10)
[2018-03-21] MEDS: ENALAPRIL MALEATE 10 MG TABLET (FP) PO SCH (09:40)
[2018-03-21] MEDS: ASPIRIN 81 MG CHEWABLE TABLETS PO SCH (09:40)
[2018-03-21] MEDS: PRENATAL VITAMINS W/ FOLIC ACID TABLET (FP) PO SCH (09:41)
[2018-03-21] MEDS: THIAMINE HCL 100 MG TABLET (FP) PO SCH (21:10)
[2018-03-22] MEDS ORDERED: PT OWN MED DRAWER 7, Y5N ONE ×3 (05:55→23:08)
[2018-03-22] MEDS: metFORMIN HCL 500 MG TABLET (FP) PO SCH ×2 (06:40→16:53)
[2018-03-22] MEDS: GABAPENTIN 300 MG CAPSULE (FP) PO SCH ×3 (06:40→21:04)
[2018-03-22] MEDS: CIPROFLOXACIN HCL 0.3% OPHTH 2.5ML BOTTLE OU SCH ×6 (06:41→21:05)
[2018-03-22] MEDS: IBUPROFEN 400 MG TABLET (FP) PO PRN ×2 (07:27→16:55)
[2018-03-22] MEDS: ASPIRIN 81 MG CHEWABLE TABLETS PO SCH (09:40)
[2018-03-22] MEDS: PRENATAL VITAMINS W/ FOLIC ACID TABLET (FP) PO SCH (09:40)
[2018-03-22] MEDS: ENALAPRIL MALEATE 10 MG TABLET (FP) PO SCH (09:41)
[2018-03-22] MEDS ORDERED: INSULIN (NOVOLOG) ASPART 100 UNITS/ML 10ML VIAL ONE (16:32)
[2018-03-22] MEDS: THIAMINE HCL 100 MG TABLET (FP) PO SCH (21:04)
[2018-03-23] MEDS ORDERED: PT OWN MED DRAWER 7, Y5N ONE ×3 (03:10→21:46)
[2018-03-23] MEDS: CIPROFLOXACIN HCL 0.3% OPHTH 2.5ML BOTTLE OU SCH ×2 (06:48→09:45)
[2018-03-23] MEDS: metFORMIN HCL 500 MG TABLET (FP) PO SCH ×2 (06:48→16:39)
[2018-03-23] MEDS: GABAPENTIN 300 MG CAPSULE (FP) PO SCH ×3 (06:48→21:31)
[2018-03-23] MEDS: IBUPROFEN 400 MG TABLET (FP) PO PRN (06:49)
[2018-03-23] MEDS: ENALAPRIL MALEATE 10 MG TABLET (FP) PO SCH (09:45)
[2018-03-23] MEDS: ASPIRIN 81 MG CHEWABLE TABLETS PO SCH (09:45)
[2018-03-23] MEDS: PRENATAL VITAMINS W/ FOLIC ACID TABLET (FP) PO SCH (09:45)
--- NOTE | 2018-03-23 13:48 | PN ---
[facility] Progress Note Note: Vital Signs Temperature 97.1 F L 03/23/18 06:58 Pulse Rate 82 03/23/18 09:28 Respiratory Rate 18 03/23/18 06:58 Blood Pressure 102/72 03/23/18 09:28 O2 Sat by Pulse Oximetry (%) patient was treated with OP cripro since 03/08/18 for conjunctivitis, patient symptoms improve, affected eye clear. med d/c continue to monitor
[2018-03-23] MEDS: THIAMINE HCL 100 MG TABLET (FP) PO SCH (21:31)
[2018-03-24] MEDS: IBUPROFEN 400 MG TABLET (FP) PO PRN ×2 (06:35→14:06)
[2018-03-24] MEDS: GABAPENTIN 300 MG CAPSULE (FP) PO SCH ×3 (06:36→21:11)
[2018-03-24] MEDS: metFORMIN HCL 500 MG TABLET (FP) PO SCH ×2 (06:36→16:58)
[2018-03-24] MEDS: ASPIRIN 81 MG CHEWABLE TABLETS PO SCH (10:06)
[2018-03-24] MEDS: ENALAPRIL MALEATE 10 MG TABLET (FP) PO SCH (10:06)
[2018-03-24] MEDS: PRENATAL VITAMINS W/ FOLIC ACID TABLET (FP) PO SCH (10:06)
[2018-03-24] MEDS: THIAMINE HCL 100 MG TABLET (FP) PO SCH (21:11)
[2018-03-25] MEDS ORDERED: PT OWN MED DRAWER 7, Y5N ONE (03:24)
[2018-03-25] MEDS: metFORMIN HCL 500 MG TABLET (FP) PO SCH (06:58)
[2018-03-25] MEDS: IBUPROFEN 400 MG TABLET (FP) PO PRN (06:58)
[2018-03-25] MEDS: GABAPENTIN 300 MG CAPSULE (FP) PO SCH (06:58)
[2018-03-25 07:01] VITALS: BP 110/77; PULSE 70; TEMP 98
--- NOTE | 2018-03-25 08:44 | PN ---
Psychiatric Progress Note Vital Signs: Vital Signs Period Temp Pulse Resp BP Sys/Izquierdo Pulse Ox Last 24 Hr 98.0 F 70-85 16-16 105-110/72-77 Date of Session: 03/25/18 HPI: Patient addressed Opioid,PCP,Alcohol dependence comorbid with Substance induced mood disorder. Current Medications: Active Medications Generic Name Dose Route Start Last Admin Trade Name Freq PRN Reason Stop Dose Admin Acetaminophen 650 mg 03/12/18 17:27 03/19/18 21:29 Tylenol - PO 650 mg Q4H PRN Administration FEVER Al Hydroxide/Mg Hydroxide 30 ml 03/12/18 17:27 03/15/18 17:09 Mylanta Oral Suspension - PO 30 ml Q6H PRN Administration DYSPEPSIA Aspirin 81 mg 03/16/18 10:00 03/24/18 10:06 Asa - PO 81 mg DAILY NISA Administration Enalapril Maleate 10 mg 03/13/18 10:00 03/24/18 10:06 Vasotec - PO 10 mg DAILY NISA Administration Eucalyptus/Menthol/Phenol/Sorbitol 1 each 03/12/18 17:27 Cepastat Lozenge - MM Q4H PRN SORE THROAT Gabapentin 300 mg 03/12/18 22:00 03/25/18 06:58 Neurontin - PO 300 mg TID NISA Administration Gabapentin 300 mg 03/25/18 14:00 Neurontin - PO TID NISA Guaifenesin 10 ml 03/12/18 17:27 Robitussin Dm - PO Q6H PRN COUGH Ibuprofen 400 mg 03/12/18 17:27 03/25/18 06:58 Motrin - PO 400 mg Q6H PRN Administration Pain Level 4-6 Loperamide HCl 4 mg 03/12/18 17:27 Imodium - PO Q6H PRN DIARRHEA Magnesium Citrate 300 ml 03/12/18 17:27 Citroma - PO Q48H PRN CONSTIPATION Magnesium Hydroxide 30 ml 03/12/18 17:27 Milk Of Magnesia - PO DAILY PRN CONSTIPATION Melatonin 5 mg 03/12/18 22:00 03/14/18 21:34 Melatonin PO 5 mg HS PRN Administration INSOMNIA Metformin HCl 500 mg 03/13/18 07:00 03/25/18 06:58 Glucophage - PO 500 mg BID@0700,1630 NISA Administration Multivit/Folic Acid/Iron 1 tab 03/13/18 10:00 03/24/18 10:06 Vitamins (Sjr) - PO 1 tab DAILY NISA Administration Pseudoephedrine/Triprolidine 1 combo 03/12/18 17:27 Actifed - PO TID PRN NASAL CONGESTION Thiamine HCl 100 mg 03/12/18 22:00 03/24/18 21:11 Vitamin B1 - PO 100 mg HS NISA Administration Current Side Effect: No Lab tests ordered: No Lab tests reviewed: Yes Provider note:: [facility] Neurontin 400 mg po tid Total face to face time:: 30 Psychiatric Treatment Plan - Problem List (1) Diabetes mellitus type 2 in nonobese Current Visit: Yes (2) HTN (hypertension) Current Visit: Yes (3) Neuropathy Current Visit: Yes (4) Alcohol dependence Current Visit: Yes (5) PCP (phencyclidine) abuse Current Visit: Yes (6) Use of cane as ambulatory aid Current Visit: Yes (7) Opioid dependence Current Visit: Yes (8) Substance induced mood disorder Current Visit: Yes (9) Conjunctivitis Current Visit: Yes Qualifiers: Conjunctivitis type: acute Acute conjunctivitis type: bacterial Laterality: right Qualified Code(s): H10.31 - Unspecified acute conjunctivitis , right eye
[2018-03-25] MEDS ORDERED: GABAPENTIN 400 MG CAPSULE (FP) PO SCH (14:00)
== END 2018-03-25 08:46 | disposition home or self-care (01) | DRG 772 ==
LOC: YASAS 15:21 → Y3E 15:23
PROVIDERS: ADMIT Psychiatry & Neurology Psychiatry; ATTEND Psychiatry & Neurology Psychiatry
PROC: HZ42ZZZ Group Counseling for Substance Abuse Treatment, Cognitive-Behavioral (ICD-10-PCS; principal; 2018-03-12)
DX: F11.20 Opioid dependence, uncomplicated (principal); F10.20 Alcohol dependence, uncomplicated; F16.10 Hallucinogen abuse, uncomplicated; F19.24 Other psychoactive substance dependence with psychoactive substance-induced mood disorder; G62.9 Polyneuropathy, unspecified; I10 Essential (primary) hypertension; E11.9 Type 2 diabetes mellitus without complications; Z79.84 Long term (current) use of oral hypoglycemic drugs; H10.32 Unspecified acute conjunctivitis, left eye; R26.89 Other abnormalities of gait and mobility; Z99.89 Dependence on other enabling machines and devices; Z59.0 Homelessness
CPT/HCPCS: 82962